=== PATIENT | male | born 1995 | race African-American/Black ===

== ENCOUNTER 2020-10-12 02:57 | Emergency (ER) | payer OTHER ==
[2020-10-12] MEDS ORDERED: morphine CARPU-JECT 4 MG/1 ML DISP.SYRIN IVPUSH ONE (03:35)
[2020-10-12 03:38] VITALS: BMI 19.1
[2020-10-12] MEDS ORDERED: AMPICILLIN NA/SULBACTAM NA 1.5 GM in SODIUM CHLORIDE 100 ML IVPB ONE (03:53)
[2020-10-12] MEDS ORDERED: morphine SULFATE 4 MG/ML VIAL ONE (04:32)
[2020-10-12] MEDS ORDERED: morphine CARPU-JECT 2 MG/1 ML DISP.SYRIN IVPUSH ONE (05:00)
[2020-10-12 05:23] LABS: INR 0.96 (0.83-1.09); PROTHROMBIN TIME (PATIENT) 11.6 SEC (9.7-13.0)
[2020-10-12 05:26] LABS: ACTIVATED PTT 34.1 SECONDS (25.2-36.5); HEMATOCRIT 43.8 % (35.4-49); HEMOGLOBIN 14.7 GM/dL (11.7-16.9); MCH 27.4 pg (25.7-33.7); MCHC 33.4 g/dl (32.0-35.9); MEAN CELL VOLUME 81.8 fl (80-96); MEAN PLT VOLUME 8.6 fl (7.5-11.1); PLATELET COUNT 259 K/MM3 (134-434); RBC 5.36 M/mm3 (4.00-5.60); RDW 13.9 % (11.9-15.9); WHITE BLOOD COUNT 12.2 K/mm3 (4.0-10.0)
[2020-10-12 05:29] LABS: POTASSIUM 3.9 mmol/L (3.5-5.1)
[2020-10-12 05:31] LABS: CALCIUM 9.2 mg/dL (8.5-10.1)
[2020-10-12 05:32] LABS: ALBUMIN 4.4 g/dl (3.4-5.0)
[2020-10-12 05:35] LABS: CREATININE 1.3 mg/dL (0.55-1.3)
[2020-10-12 05:36] LABS: BILIRUBIN,TOTAL 0.3 mg/dL (0.2-1); TOT PROT 7.8 g/dl (6.4-8.2)
[2020-10-12] MEDS ORDERED: MORPHINE SULFATE 2 MG/ML VIAL ONE (06:19)
[2020-10-12 11:00] VITALS: BP 127/77; PULSE 78; TEMP 97.3
== END 2020-10-12 10:50 | disposition short-term general hospital (02) ==
LOC: JER 02:57
PROC: 3E03329 Introduction of Other Anti-infective into Peripheral Vein, Percutaneous Approach (ICD-10-PCS; principal; 2020-10-12)
PROC: 3E033GC Introduction of Other Therapeutic Substance into Peripheral Vein, Percutaneous Approach (ICD-10-PCS; 2020-10-12)
DX: T85.698A Other mechanical complication of other specified internal prosthetic devices, implants and grafts, initial encounter (principal)
CPT/HCPCS: 36415; 70110-TC-FY; 80053; 85027; 85610; 85730; 86850; 86900; 86901; 99285-25